=== PATIENT | male | born 1940 | race Caucasian/White ===

== ENCOUNTER → 2016-09-20 | Outpatient (CLI) | payer OTHER ==
[~2016-09-20] MED LIST: AMOXICILLIN500 MG PO; CELEBREX200 MG PO; CHOLESTEROL MED; Ecotrin PO; HYDROCODON-ACE1 EAC7 PO; LEVAQUIN750 MG PO; PROTONIX20 MG PO; Percocet 5/325,Endoc PO; Pravachol PO; Senokot S,Pericolace PO; Vicodin,Norco 5/325 PO; ZESTRIL20 MG PO; Zestril,Prinivil PO
== END | disposition home or self-care (01) ==
LOC: MRI 09:52 → RAD 11:00
DX: H46.9 Unspecified optic neuritis (principal)
CPT/HCPCS: 70140; 70543

== ENCOUNTER 2016-12-23 18:00 | Emergency (ER) | payer OTHER ==
[~2016-12-23] VITALS: Ht 188 cm; Wt 104.3 kg
[2016-12-23 19:44] LABS: HEMATOCRIT 48.1 % (38.0-50.0); MCH 31.6 PG (29.0-34.0); MCHC 34.1 G/DL (30.0-36.0); MCV 92.7 FL (86-99); MEAN PLAT.VOLUME 10.7 uM^3 (9.0-12.4); PLATELET COUNT 212 K/uL (156-360); RBC DIS.WIDTH-CV 12.1 % (11.8-14.6); RBC DIS.WIDTH-SD 41.3 % (39-53); RED BLOOD COUNT 5.19 M/uL (4.00-5.50)
[2016-12-23 20:02] LABS: CHLORIDE 106 mEq/L (99-109); POTASSIUM 3.7 mEq/L (3.7-5.4); SODIUM 139 mEq/L (136-147)
[2016-12-23 20:03] LABS: GLUCOSE 66 mg/dL (70-99)
[2016-12-23 20:05] LABS: ANION GAP 10 MEQ/L (2-14)
[2016-12-23 20:07] LABS: GFR ESTIMATE (CALCULATED) > 59 mL/min/
[2016-12-23 20:08] LABS: UREA NITROGEN (BUN) 8 mg/dL (9-23)
[2016-12-23] MEDS ORDERED: AUGMENTIN875 MG PO (21:10)
[2016-12-23 21:42] VITALS: BP 151/64
== END 2016-12-23 21:45 | disposition home or self-care (01) ==
LOC: EME 18:00
DX: J02.9 Acute pharyngitis, unspecified (principal); R53.83 Other fatigue; I10 Essential (primary) hypertension; K21.9 Gastro-esophageal reflux disease without esophagitis
CPT/HCPCS: 71020; 80048; 85027; 99281; 99283